=== PATIENT | female | born 1995 | race African-American/Black ===

== ENCOUNTER 2017-09-16 08:35 | Outpatient (CLI) | payer MEDICARE ==
--- NOTE | 2017-09-16 12:40 | Fluoroscopy Report ---
BARIUM SWALLOW: History: Dysphagia. Gastroesophageal reflux. The patient swallows barium without difficulty demonstrating normal coordination. The cervical and thoracic portions of the esophagus demonstrate normal contours and there is normal peristalsis. There is no evidence of a hiatus hernia and no reflux is demonstrated. IMPRESSION: Normal study.
== END 2017-09-16 08:36 | disposition home or self-care (01) ==
LOC: FLUORO 08:35
PROVIDERS: ATTEND Otolaryngology
DX: K21.9 Gastro-esophageal reflux disease without esophagitis (principal); Q90.9 Down syndrome, unspecified; R13.10 Dysphagia, unspecified
CPT/HCPCS: 74220